=== PATIENT | male | born 1995 | race American Indian/Alaskan Native ===

== ENCOUNTER 2020-01-02 13:53 | Emergency (ER) | payer OTHER ==
[~2020-01-02] VITALS: Ht 167.6 cm; Wt 68.0 kg
[2020-01-02 14:06] VITALS: BP 160/90
[2020-01-02 14:08] VITALS: BP 160/90
--- NOTE | 2020-01-02 14:09 | NUR ---
ARRIVAL PATIENT ARRIVED TO ED[facility] AMBULATORY, C/O OF RIGHT EAR PAIN FOR THE PAST COUPLE OF DAYS, UNABLE TO SEE HIS PCP AND CAME TO THE ED FOR EVAL. DOCTOR DEVON TO ROOM TO SEE PATIENT
--- NOTE | 2020-01-02 14:19 | ER.PDOC ---
General Chief Complaint: Earache Stated Complaint: RIGHT EAR ACHE Time seen by MD: 14:22 Source: patient Exam Limitations: no limitations History of Present Illness Timing/Duration: gradual Severity: moderate Location of Pain: (R) Ear Associated Symptoms: dull earache, hearing loss Prior symptoms/Treatment: Similar symptoms previous Allergies: Coded Allergies: ceftriaxone (Verified Allergy, Unknown, 01/02/20) Past Medical History Medical History: asthma Surgical History: no surgical history Social History Alcohol Use: none Drug Use: none Reviewed Nursing Reviewed: Vital Signs, Abn. Noted All Other Systems: Reviewed and Negative Physical Exam General Appearance: alert, no distress TM's: erythema (R(, erythema (L), bulging of TM (R) Mouth/Throat: lips/gums nml, pharynx nml Nose: nml inspection Head/Neck: atraumatic, neck nml inspection Eyes: eyes nml inspection, PERRL, no nystagmus Resp/CVS: no resp distress, lungs clear, heart sounds nml, reg. rate & rhythm Abdomen: non-tender, no organomegaly Results/Orders Results/Orders Vital Signs Date Time Temp Pulse Resp B/P (MAP) Pulse Ox O2 Delivery O2 Flow Rate FiO2 01/02/20 14:08 98.4 93 16 98 Room Air 01/02/20 14:06 98.4 93 16 98 01/02/20 14:06 98.4 93 16 Departure Time of Disposition: 14:22 Disposition: 01 HOME, SELF-CARE Impression: Primary Impression: Otitis media Condition: Stable Referrals: PCP,UNKNOWN (PCP) PRIMARY CARE PROVIDER Duration or Time Spent with Pa: KAROL CENTENO MD Jan 02, 2020 14:19
== END 2020-01-02 14:22 | disposition home or self-care (01) ==
LOC: ER 13:53
DX: H66.91 Otitis media, unspecified, right ear (principal); J45.909 Unspecified asthma, uncomplicated; Z88.1 Allergy status to other antibiotic agents
CPT/HCPCS: 99283